=== PATIENT | male | born 1950 | race Caucasian/White ===

== ENCOUNTER 2018-02-01 22:51 | Inpatient (IN) | payer MEDICARE ==
[~2018-02-01] VITALS: Ht 188 cm; Wt 98.0 kg
[~2018-02-01 22:51] MED LIST: ASPI-484 PO; CHOL2000 PO; DOCU-123 PO; FLUT16SP2 NS; GABA300C PO; GLIM2TAB PO; INSU100I13 SQ; LOSA50TA6 PO; SERT50TA PO; TADA5TAB PO; TEST200V3 IM; Trazodone Hcl PO
[2018-02-02] MEDS ORDERED: HALDOL IM PRN (01:30)
[2018-02-02] MEDS ORDERED: ATIVAN IM PRN (01:30)
[2018-02-02] MEDS ORDERED: FLOMAX PO SCH ×2 (01:30→21:00)
[2018-02-02] MEDS ORDERED: HALDOL PO PRN (01:30)
[2018-02-02] MEDS ORDERED: FLEXERIL PO PRN ×2 (01:30→21:00)
[2018-02-02] MEDS ORDERED: ATIVAN PO PRN (01:30)
--- NOTE | 2018-02-02 01:30 | NUR ---
Release of information JESS signed from patient to [facility] JESS faxed and received list of active medications. No psychiatric medications prescribed. [facility] in past [facility] per [place] scalehouse attendant, Fabi TIMMONS.
--- NOTE | 2018-02-02 01:33 | NUR ---
PRN MED: PT. GIVEN A PRN ATIVAN 0.5 MG PO FOR ANXIETY. PT. ANXIOUS ABOUT BEING ABLE TO GO TO SLEEP. PT. NEW ADMIT
--- NOTE | 2018-02-02 02:30 | NUR ---
F/U PRN: PT. IS LAYING IN BED WITH EYES CLOSED.
--- NOTE | 2018-02-02 04:30 | NUR ---
Admission 67 year old, , retired trash truck driver, male who is a [place] , presents to [facility] as a direct admit from [facility] on involuntary status with court commitment papers for suicidal statement. The patient was speaking to a [place] healthcare employee via telephone when he made statements concerning his 's poor health and expressed a desire to kill himself. The [facility] contacted local authorities who transported the patient to the [facility] ED. The patient presents with complaint of depression and anxiety which is characterized by suicidal ideation; decreased appetite AEB nothing to eat in the past 24 hours; decreased sleep at four to five non-continuous hours a night; increased irritability; expressing feelings of being overwhelmed AEB statement "the pressure is too much"; and expressing feelings of hopelessness AEB statements "living is hard, dying is easy", "life will mean nothing if she dies", and "I am always scared to she will ". 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 The symptoms were further aggravated within the past 24 hours by smoking marijuana and getting into argument with his . The patient is treated at the [facility]. He takes no psychiatric medications and does not remember the last psych medications he was on. He was last admitted to this unit in 2013 and reports one admission to the [facility] two years ago. The patient's UDS is positive for cannabinoids with last use of marijuana on 01/31/18 for first time in four months. He is alert and oriented x4. Cooperative with assessment. Oriented to unit and room.
[2018-02-02 07:30] VITALS: BP 161/98
[2018-02-02] MEDS ORDERED: INSU100C5 SQ (07:38)
--- NOTE | 2018-02-02 08:43 | NUR ---
TELEMEDICINE PT SPOKE WITH DR ENNIS. HE STATED THAT HIS IS DYING AND THAT HE IS GOING THROUGH A LOT OF STRESS AT THIS TIME. TOLD DR ENNIS THAT HIS 'S UTILITY CLERK FIRED HIS A PT BECAUSE SHE WAS NOT ABLE TO AFFORD HER MEDICATION. WHEN ASKED IF PT HAS ANY FEELINGS OF WANTING TO HARM ANYONE PT STATED, "MY MADE ME PROMISE NOT TO HURT THAT DOCTOR (UTILITY CLERK) BECAUSE I REALLY WANT TO." HE DOES NOT REMEMBER CALLING THE [place] HOTLINE. HE STATED THAT HE WAS UPSET ABOUT NOT CLEANING THE KITCHEN BEFORE LEAVING TO GO WITH FRIENDS. PT HAD TAKEN INSULIN AND DID NOT EAT CAUSING HIS SUGAR TO DROP.
[2018-02-02] MEDS ORDERED: ZOLOFT PO SCH (09:00)
--- NOTE | 2018-02-02 10:23 | PCM.EKG ---
[facility] Test Date: 2018-02-02 Test Time: 09:59:51 Pat Name: MEAGAN RODRIGUES Department: Room: 211 B Gender: M Club Manager: : [id number] Requested By: COLLEEN ENNIS Order Number: [id number] Reading MD: Measurements Intervals [place] Rate: 69 P: 58 LA: 202 QRS: -9 QRSD: 98 T: 14 QT: 384 QTc: 411 Interpretive Statements Normal sinus rhythm Normal ECG No previous ECG available for comparison Please click the below link to view image of tracing.
[2018-02-02 12:50] VITALS: BP 180/91
--- NOTE | 2018-02-02 12:50 | NUR ---
PT STATUS REPORTED TO ME BY JOSÉ TIMMONS THAT PT WAS SITTING IN CHAIR TALKING TO AND BECAME UNRESPONSIVE. PT SLUMPED DOWN IN CHAIR ONTO TABLE TOP, THEN SLID TO THE FLOOR. PT'S HEAD WAS STABILIZED IN THE HANDS OF YEN MENENDEZ BEFORE HITTING THE FLOOR. THIS RN AT SIDE. VS BP 180/91; HR 86; O2 SAT 99% BLOOD SUGAR 215. FIXED PINPOINT PUPILS, COLD AND CLAMMY, WITH INVOLUNTARY SHAKING.
--- NOTE | 2018-02-02 13:00 | NUR ---
PT STATUS (CONT) 20G IV STARTED TO RIGHT FA ATTEMPT TIMES ONE ASEPTIC TECH MAINTAINED. PUPILS CONTINUE TO FIXED AND PINPOINT. PT UNABLE TO STATE NAME OR DATE OF . PHYSICIAN SUGGESTED TO TRANSFER TO ER FOR FURTHER EVAL. ER SUGGESTED TO TRANSFER PT TO MED/SURG SINCE PT IS ALREADY A PT IN PSYCH UNIT. DR BATES AT SIDE. STATES PAIN TO HEAD RATED 10/10 BY PROXY. PUPILS REMAIN PIN POINT AND ARE SLUGGISH. PT STARTED REPEATING HIS NAME AND HIS 'S NAME OVER AND OVER SEVERAL TIMES. ORDERS GIVEN TO TRANSFER TO MED/SURG. TRANSFERRED PT TO [facility] WITH ASSIST TIMES 4.
[2018-02-02 13:25] VITALS: BP 182/98
--- NOTE | 2018-02-02 13:25 | NUR ---
TRANSFERRED TO MED SURG PT TRANSFERRED TO MED/SURG [facility]IA [facility] WITH ASSIST OF KEARA TIMMONS AND CIELO TIMMONS.
--- NOTE | 2018-02-02 13:26 | PSYCH ---
DATE OF SERVICE: 02/02/2018 CHIEF COMPLAINT: "I don't remember what happened." HISTORY OF PRESENT ILLNESS: There is a 67-year-old male who is a . The patient was an involuntary admission last night who came from the [facility]. The patient reportedly called the [place] hotline and stated that he was going to overdose on insulin. The police were called to check on him and he was taken to the [facility] ER where he was then transferred to this facility. The patient does have a history of mental health problems. He has been hospitalized at the [facility] about 2 years ago for suicidal ideation. The patient reports that his mood is depressed and overwhelmed. He states that his is having medical problems and this is very much worrisome. He states that he worries about this all day every day. He does report that his mood has been depressed. He reports feeling hopeless and helpless. He slept 3.25 hours last night. He reports his sleep is up and down. He reports having some memory loss. He reports having blackout spells and cannot remember things very well. He does walk with a cane. He denies suicidal or homicidal ideation today. He was wanting to leave as soon as possible. He denies auditory or visual hallucinations. He is not having manic or hypomanic symptoms. He was not having any psychotic symptoms. He reports a moderate to high anxiety level. He reports feeling hopeless and helpless. He has feelings of guilt. He has a decreased concentration level. He has decreased interest in activities. The patient does live in [place], [place] with his of 6 years. PAST PSYCHIATRIC HISTORY: The patient was hospitalized at the inpatient [facility] about 2 years ago for suicidal ideation. He sees a psychiatrist, Dr. Vyas at the [facility]. He has been on multiple psychotropic medications in the past that he cannot remember. He denies ever attempting suicide in the past. PAST MEDICAL HISTORY: 1. Diabetes. 2. BPH. 3. History of hypertension. 4. Neuropathy. CURRENT MEDICATIONS: 1. Cyclobenzaprine 10 mg p.o. at bedtime p.r.n. muscle spasms. 2. Tamsulosin 0.8 mg p.o. at bedtime. 3. NovoLog insulin 10 units subQ t.i.d. 4. Lantus insulin 38 units subcutaneous at bedtime. ALLERGIES: The patient has no known drug allergies. FAMILY HISTORY: The patient states that his mother had bipolar disorder. He states that she was in [facility] multiple times in the past. He states that she murdered multiple people in his family. SOCIAL HISTORY: The patient is . 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 He reports using marijuana 2-3 times per month. He denies other drug or alcohol use. 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 He reports being clean and sober for 40 years except for marijuana. He denies using tobacco. He denies currently using alcohol. He is retired. He moved to this area recently with his . He states that he is from the [facility]. OBJECTIVE: VITAL SIGNS: Height is 187.96 cm, weight is 97.97 kilograms, temperature is 98.0, pulse 78, respirations are 18, O2 saturations 96% on room air, blood pressure is 161/98. Blood sugar is 218. The patient was in no physical pain or distress at this time. He does have a history of an appendectomy, gallbladder removed, and a leg surgery. REVIEW OF SYSTEMS: CONSTITUTIONAL: No recent changes in weight. No fatigue. Some insomnia. NEUROLOGICAL: No tremors. No weakness. No dizziness. PSYCHIATRIC: Positive for depression. Positive for anxiety. Positive for nightmares and PTSD symptoms. No lexa. No psychosis. GASTROINTESTINAL: No diarrhea, no nausea, no constipation, no GERD symptoms, no vomiting. GENITOURINARY: No problems urinating. No pain on urination. CARDIOVASCULAR: No chest pain or chest palpitations. RESPIRATORY: No shortness of breath. No wheezing or coughing. SKIN: No problems reported. ENDOCRINE: No heat or cold intolerance. EXTREMITIES: No swelling or edema. EYES: No recent changes in vision. EARS: No recent changes in hearing. REVIEW OF SYSTEMS: Otherwise negative and reviewed by Dr. Diallo. MENTAL STATUS EXAMINATION: MUSCLE STRENGTH AND TONE: Within normal limits for age. GAIT AND STATION: Within normal limits for age. APPEARANCE: Well-groomed and good hygiene. Appears stated age. Casual attire. Normal weight. ATTITUDE AND BEHAVIOR: Cooperative. Good eye contact. Psychomotor agitation at times. MOOD AND AFFECT: Mood is depressed. Affect is guarded. ATTENTION AND CONCENTRATION: Fair attention and fair concentration. ORIENTATION: Fully oriented for interview. SPEECH: Regular rate and volume. JUDGMENT AND INSIGHT: Poor judgment and poor insight. THOUGHT PROCESS: Logical and goal directed. LANGUAGE: Citizen [place]. THOUGHT CONTENT: Denies suicidal ideation at this time. Does report being extremely angry at the doctor that diagnosed his with heart problems. He states that he will not hurt her at this time because he promised his he would not. Denies auditory or visual hallucinations. Denies paranoia. FUND OF KNOWLEDGE: Within normal limits. ASSOCIATIONS: Within normal limits. MEMORY: Recent and remote memory are both intact. STRENGTHS: Relatively good health. WEAKNESSES: Chronic mental health issues. Poor judgment. COGNITIVE IMPAIRMENTS: No. ASSESSMENT: Major depressive disorder; posttraumatic stress disorder; generalized anxiety disorder. PROGNOSIS: Fair to guarded. ESTIMATED LENGTH OF STAY: 3-7 days. TREATMENT PLAN: 1. The patient will be an involuntary admission to the [facility]. The patient will be monitored closely for behaviors. The patient states he will be cooperative with staff. 2. The patient will be started on sertraline 50 mg p.o. daily. The patient will be started on Remeron 7.5 mg p.o. at bedtime. He will be continued on other medications including p.r.n. \\ Haldol and Ativan. 3. The patient will see the general medical doctor for general medical health issues. 4. The patient will be encouraged to participate in all groups and activities. Nataly Diallo IV MD DR: /jose armando JOB# [id number]
[2018-02-02] MEDS ORDERED: NS 1000ML 1,000 ML IV ONE (13:30)
--- NOTE | 2018-02-02 13:40 | PCM.EKG ---
[facility] Test Date: 2018-02-02 Test Time: 13:44:05 Pat Name: MEAGAN RODRIGUES Department: Room: 211 B Gender: M Shade Maker: GUMARO : 1950 Requested By: WELLINGTON BATES Order Number: [id number] Reading MD: Measurements Intervals [place] Rate: 78 P: 67 TN: 214 QRS: -10 QRSD: 100 T: 38 QT: 378 QTc: 430 Interpretive Statements Sinus rhythm with 1st degree AV block Otherwise normal ECG No previous ECG available for comparison Please click the below link to view image of tracing.
[2018-02-02] MEDS ORDERED: HUMALOG SQ SCH (14:00)
--- NOTE | 2018-02-02 14:00 | NUR ---
SW INTERVENTIONS: SW UNABLE TO COMPLETE INTERVENTIONS SINCE PT WAS TRANSFERRED TO MEDICAL FLOOR AND WAS ON BHU LESS THAN 24 HOURS. SW TO FOLLOW PT WHILE ON THE MEDICAL FLOOR.
[2018-02-02] MEDS ORDERED: MIRT15TA3 PO (14:38)
[2018-02-02] MEDS ORDERED: CYCL10TA2 PO (14:38)
[2018-02-02] MEDS ORDERED: SERT50TA PO (14:38)
[2018-02-02] MEDS ORDERED: INSU100V8 SQ (14:38)
[2018-02-02] MEDS ORDERED: TAMS0.4C2 PO (14:38)
[2018-02-02] MEDS ORDERED: REMERON PO SCH (21:00)
[2018-02-02] MEDS ORDERED: LANTUS SQ SCH (21:00)
--- NOTE | 2018-02-02 21:31 | DSH ---
DATE OF DISCHARGE: 02/02/2018 HOSPITAL COURSE: The patient is a 67-year-old male who was an involuntary admission to the Behavioral Health Unit for suicidal ideation with a plan to overdose on his insulin. The patient called the [place] hotline last night and told him that he wanted to end his life. He downplays this scenario. He states that he possibly blacked out, but he does not remember saying this. The patient reports his mood has been depressed. He constantly worries about his 's medical problems. He does have PTSD symptoms. He has a high anxiety level. His sleep is up and down. His appetite has also been up and down. He has feelings of guilt. He feels hopeless and helpless. He was started on Zoloft 50 mg p.o. daily and Remeron 7.5 mg p.o. at bedtime. He was not given a Remeron before he was discharged. The patient was reportedly talking to his over the phone and lost consciousness, fell out of a chair and started mumbling and not making sense. He was disoriented when he had been oriented before. He was transferred to the medical floor for medical workup. He will be followed by mental health on the consult service on the floor. The patient can come back to the inpatient psychiatric unit once he is medically stable. DISCHARGE DIAGNOSES: Major depressive disorder, recurrent, severe; posttraumatic stress disorder; generalized anxiety disorder. DISCHARGE PLAN: 1. The patient is being transferred to the medical floor for medical workup due to altered mental status. 2. The patient should continue Zoloft 50 mg p.o. daily and Remeron 7.5 mg p.o. at bedtime. He should be on 1:1 monitoring for his first 24 hours lies on the floor. 3. Psychiatry will follow the patient as needed for consultation service. Nataly Diallo IV MD DR: /jose armando JOB# [id number]
[2018-02-03] MEDS ORDERED: ASPI-655 PO (10:52)
[2018-02-03] MEDS ORDERED: CLON0.1T12 PO (10:52)
[2018-02-03] MEDS ORDERED: LISI-414 PO (10:52)
[2018-02-03] MEDS ORDERED: FAMO20TA5 PO (10:52)
[2018-02-03] MEDS ORDERED: ACET500T73 PO (10:52)
[2018-02-03] MEDS ORDERED: TEMA15CA6 PO (10:52)
[2018-02-03] MEDS ORDERED: HUMALOG ONE (17:53)
== END 2018-02-02 13:35 | disposition short-term general hospital (02) | DRG 885 ==
LOC: GP 23:41 → EEVIPCON 23:41
PROVIDERS: ADMIT Psychiatry & Neurology Psychiatry; ATTEND Psychiatry & Neurology Psychiatry
DX: F33.2 Major depressive disorder, recurrent severe without psychotic features (principal); R45.851 Suicidal ideations; E11.40 Type 2 diabetes mellitus with diabetic neuropathy, unspecified; F12.90 Cannabis use, unspecified, uncomplicated; R41.0 Disorientation, unspecified; N40.0 Benign prostatic hyperplasia without lower urinary tract symptoms; F41.1 Generalized anxiety disorder; F43.10 Post-traumatic stress disorder, unspecified; I10 Essential (primary) hypertension; W07.XXXA Fall from chair, initial encounter; Y92.238 Other place in hospital as the place of occurrence of the external cause; Z81.8 Family history of other mental and behavioral disorders; Y93.89 Activity, other specified; Y99.8 Other external cause status
CPT/HCPCS: 36415; 70450; 80061; 82948; 83036; 93005; J1815; J2060; J7030